=== PATIENT | male | born 1995 | race Hispanic/Latino ===

== ENCOUNTER 2021-11-22 16:21 | Emergency (ER) | payer OTHER ==
[2021-11-22] MEDS ORDERED: TORAdol 30 mg Injection IM ONE (16:37)
[2021-11-22 16:39] VITALS: O2SAT 100
[2021-11-22] MEDS ORDERED: TORAdol 30 mg Injection ONE (16:39)
--- NOTE | 2021-11-22 17:10 | ERPHSYRPT ---
- History of Present Illness Time Seen by Provider: 11/22/21 16:45 Source: patient Exam Limitations: no limitations Patient Subjective Stated Complaint: C/O injury/foreign body to right hand index finger at job site just prior to coming into the ED today. Triage Nursing Assessment: Staple noted to be sticking out of the right hand index finger of patient upon entering ED. No active bleeding. One prong of the staple is visible with the other prong imbedded in distal end of index finger in or near the joint. Physician History: Patient 26-year-old male presents to emergency department for evaluation and treatment of a foreign body in right index finger. Patient was at work. Patient was using a staple gun. The gun accidentally discharged impaling his right index finger with a staple. 1 prong of the staple is embedded into the bone of the distal aspect of the middle phalanx is proximal to the DIP joint. Injury occurred just prior to arrival. Pain described as an ache that is well localized. No radiation. No other injuries reported. Patient otherwise healthy. Tetanus up-to-date. Patient voices no other complaints or concerns at this time. Occurred: just prior to arrival Method of Injury: other (Accidental foreign body/staple in right index finger) Quality: constant Severity of Pain-Max: moderate Severity of Pain-Current: mild Extremities Pain Location: 2nd finger: right Modifying Factors: Improves With: nothing Associated Symptoms: none Allergies/Adverse Reactions: No Known Drug Allergies Allergy (Verified 11/22/21 16:28) Hx Tetanus, Diphtheria Vaccination/Date Given: Yes Hx Influenza Vaccination/Date Given: No Hx Pneumococcal Vaccination/Date Given: No Immunizations Up to Date: Yes Travel Risk - International Travel Have you traveled outside of the country in past 3 weeks: No - Coronavirus Screening Are you exhibiting any of the following symptoms?: No Close contact with a COVID-19 positive Pt in past 14-21 Days: No - Vaccine Status Have you recieved a Covid-19 vaccination: No - Review of Systems Constitutional: No Symptoms, No Fever, No Chills Eyes: No Symptoms Ears, Nose, & Throat: No Symptoms Respiratory: No Symptoms, No Cough, No Dyspnea Cardiac: No Symptoms, No Chest Pain, No Edema, No Syncope Abdominal/Gastrointestinal: No Symptoms, No Abdominal Pain, No Nausea, No Vomiting, No Diarrhea Genitourinary Symptoms: No Symptoms, No Dysuria Musculoskeletal: No Symptoms, No Back Pain, No Neck Pain Skin: No Symptoms, No Rash Neurological: No Symptoms, No Dizziness, No Focal Weakness, No Sensory Changes Psychological: No Symptoms Endocrine: No Symptoms Hematologic/Lymphatic: No Symptoms Immunological/Allergic: No Symptoms All Other Systems: Reviewed and Negative - Past Medical History Pertinent Past Medical History: Yes Musculoskeletal History: Fractures GI Medical History: Gallbladder Disease - Past Surgical History Past Surgical History: Yes Neuro Surgical History: No Pertinent History Cardiac: No Pertinent History Respiratory: No Pertinent History Gastrointestinal: Cholecystectomy - Social History Smoking Status: Never smoker Exposure to second hand smoke: No Drug Use: none Patient Lives Alone: Yes - Nursing Vital Signs Nursing Vital Signs: Initial Vital Signs Temperature 97.7 F 11/22/21 16:29 Respiratory Rate 20 11/22/21 16:29 O2 Sat by Pulse Oximetry 100 11/22/21 16:29 Pain Scale Pain Intensity 8 - Physical Exam General Appearance: no apparent distress, alert Eyes, Ears, Nose, Throat Exam: normal ENT inspection, TMs normal, pharynx normal, moist mucous membranes Neck Exam: normal inspection, non-tender, supple, full range of motion Cardiovascular/Respiratory Exam: chest non-tender, normal breath sounds, regular rate/rhythm, no respiratory distress Abdominal Exam: non-tender, soft, No guarding Back Exam: normal inspection, normal range of motion, No vertebral tenderness Shoulder Exam: normal inspection, non-tender, no evidence of injury, normal ROM Elbow/Forearm Exam: normal inspection, non-tender, no evidence of injury, normal ROM Wrist Exam: normal inspection, non-tender, no evidence of injury, normal ROM Hand Exam: normal inspection (There is a staple embedded at the distal aspect of the middle phalanx just proximal to the IP joint.) Neuro/Tendon Exam: normal sensation, normal motor functions Mental Status Exam: alert, oriented x 3, cooperative Skin Exam: normal color, warm, dry SpO2 Interpretation: normal SpO2: 100 O2 Delivery: Room Air - Course Nursing assessment & vital signs reviewed: Yes - Radiology Exams Hand X-ray Interpretation: Interpreted by me (Right index finger has a staple embedded into the distal aspect of the middle phalanx, just proximal to the IP joint) Other X-ray Interpretation: Interpreted by me (Repeat x-rays of the involved digit showed no retained foreign bodies. Foreign body removed. No fractures. No dislocations.) Ordered Tests: Active Orders 24 hr Category Date Time Status Splint STAT Care 11/22/21 17:53 Active Wound Care STAT Care 11/22/21 17:29 Active FINGER(S) Routine Exams 11/22/21 17:50 Ordered HAND (MINIMUM 3 VIEWS) Stat Exams 11/22/21 16:36 Taken Medication Summary Discontinued Medications Generic Name Dose Route Start Last Admin Trade Name Freq PRN Reason Stop Dose Admin Bacitracin Zinc 0.9 each 11/22/21 17:35 11/22/21 17:37 Bacitracin Packet 1 Each Pckt TP 11/22/21 17:36 0.9 each STAT ONE Administration Bacitracin Zinc Confirm 11/22/21 17:36 Bacitracin Packet 1 Each Pckt Administered 11/22/21 17:37 Dose 1 each .ROUTE .STK-MED ONE Clindamycin Phosphate 600 mg 11/22/21 17:22 11/22/21 17:37 Clindamycin Phosphate 600 Mg/4 Ml Vial IM 11/22/21 17:23 600 mg ONCE STA Administration Clindamycin Phosphate Confirm 11/22/21 17:36 Clindamycin Phosphate 600 Mg/4 Ml Vial Administered 11/22/21 17:37 Dose 600 mg .ROUTE .STK-MED ONE Ketorolac Tromethamine 60 mg 11/22/21 16:37 11/22/21 16:41 Ketorolac Tromethamine 30 Mg/Ml Inj IM 11/22/21 16:38 60 mg STAT ONE Administration Ketorolac Tromethamine Confirm 11/22/21 16:39 Ketorolac Tromethamine 30 Mg/Ml Inj Administered 11/22/21 16:40 Dose 60 mg .ROUTE .STK-MED ONE Lidocaine HCl 5 ml 11/22/21 17:35 11/22/21 17:37 Lidocaine Hcl 1% 20 Ml Mdv 20 Ml Ml IJ 11/22/21 17:36 5 ml STAT ONE Administration Lidocaine HCl Confirm 11/22/21 17:36 Lidocaine Hcl 1% 20 Ml Mdv 20 Ml Ml Administered 11/22/21 17:37 Dose 5 ml .ROUTE .STK-MED ONE - Progress Progress: improved Progress Note: Repeat x-ray shows adequate removal of foreign body. No retained foreign body. No fractures or dislocations. Unable to document in PACS due to radiology unable to upload image. The repeat image was observed on the radiology portable x-ray machine. Patient received Toradol for pain control. He also received a digital block. The finger was irrigated. The foreign body was removed. No complications. Patient neurovascular tact distally post removal. Patient received 600 mg clindamycin IM. A prescription for clindamycin was forwarded to patient's pharmacy. Clindamycin was chosen as the patient's hand was contaminated with the injury occurred. Pain significantly improved. Patient referred to orthopedic clinic for follow-up. Tetanus is up-to-date. Patient involved digit was placed in a finger splint. Patient voices no other complaints or concerns at this time. Will discharge home. Portions of this note were created with voice recognition technology. There may be grammatical, spelling, punctuation or sound alike errors 11/22/21 18:00 Counseled pt/family regarding: diagnosis, need for follow-up, rad results - Departure Departure Disposition: Home Clinical Impression: Foreign body of finger Condition: Stable Critical Care Time: No Referrals: DOCTOR,NO FAMILY [Primary Care Provider] - Follow up/PCP as directed EVELIN FISH [ACTIVE STAFF] - Follow up/PCP as directed Instructions: Removal of Foreign Body in Skin Additional Instructions: Discharge/Care Plan TERRENCEEMILY CHLOE was seen on 11/22/21 in the Emergency Room. The patient was counseled regarding Diagnosis,Lab results, Imaging studies, need for follow up and when to return to the Emergency Room. Prescriptions given: Discharge Note I have spoken with the patient and/or caregivers. I have explained the patient's condition, diagnosis and treatment plan based on the information available to me at this time. I have answered the patient's and/or caregiver's questions and addressed any concerns. The patient and/or caregivers have as good understanding of the patient's diagnosis, condition and treatment plan as can be expected at this point. The vital signs have been stable. The patient's condition is stable and appropriate for discharge from the emergency department. The patient will pursue further outpatient evaluation with the primary care physician or other designated or consulting physician as outlined in the discharge instructions. The patient and/or caregivers are agreeable to this plan of care and follow-up instructions have been explained in detail. The patient and/or caregivers have received these instruction. The patient/and or caregivers are aware that any significant change in condition or worsening of symptoms should prompt an immediate return to this or the closest emergency department or call 911. Prescriptions: Clindamycin HCl 150 mg [Cleocin 150 mg Capsule] 2 cap PO QID 7 Days #56 cap Outpatient Orders: Ortho Referral Time Frame: 1 Day, Facility: [facility], ocation: ORTHO CLINIC
[2021-11-22] MEDS ORDERED: Cleocin Phosphate IV 600 MG/4 ML IM STA (17:22)
[2021-11-22] MEDS ORDERED: BACIGUENT PACKET TP ONE (17:35)
[2021-11-22] MEDS ORDERED: XYLOCAINE 1% HCL 20 ML MDV IJ ONE (17:35)
[2021-11-22] MEDS ORDERED: Cleocin Phosphate IV 600 MG/4 ML ONE (17:36)
[2021-11-22] MEDS ORDERED: XYLOCAINE 1% HCL 20 ML MDV ONE (17:36)
[2021-11-22] MEDS ORDERED: BACIGUENT PACKET ONE (17:36)
[2021-11-22 18:11] VITALS: BP 134/75; PULSE 64
--- NOTE | 2021-11-23 08:42 | XRAY ---
Indication: Foreign body removal. Comparison: Taken earlier in the day. 3 view right 2nd finger demonstrates successful complete removal of previous metallic staple. No other bony, articular, or soft tissue abnormalities.
== END 2021-11-22 18:11 | disposition home or self-care (01) ==
LOC: ED 16:21
DX: S61.240A Puncture wound with foreign body of right index finger without damage to nail, initial encounter (principal); W26.8XXA Contact with other sharp object(s), not elsewhere classified, initial encounter; W45.8XXA Other foreign body or object entering through skin, initial encounter; W29.4XXA Contact with nail gun, initial encounter; Y99.0 Civilian activity done for income or pay; Z28.310 Unvaccinated for COVID-19
CPT/HCPCS: 10120; 73130; 73140; 96372; 99284; J1885; A9270-GY